=== PATIENT | female | born 1990 | race Caucasian/White ===

== ENCOUNTER 2018-08-09 22:27 | Inpatient (IN) ==
[2018-08-09] MEDS ORDERED: Naloxone 0.4 MG/ML INJ IVP PRN (23:10)
[2018-08-09] MEDS ORDERED: Ondansetron 4 MG/2 ML VIAL IVP PRN (23:10)
[2018-08-09] MEDS ORDERED: Famotidine 20 MG/2 ML VIAL IVP PRN (23:10)
[2018-08-09] MEDS ORDERED: *HR* Nalbuphine 10 MG/ML AMPUL IVP PRN (23:10)
[2018-08-09] MEDS ORDERED: Metoclopramide 10 MG/2 ML VIAL IVP PRN (23:10)
[2018-08-09] MEDS ORDERED: Ringers Solution, Lactated 1,000 ML IVC SCH (23:15)
[2018-08-09] MEDS ORDERED: Oxytocin 20 units/ LR 1000 mL 20 UNIT/1,000 ML BAG IVC SCH (23:15)
--- NOTE | 2018-08-10 00:03 | OB/GYN History & Physical ---
Date of Encounter: 08/10/18 Time of Encounter: 00:00 Assessment and Plan (1) 39 weeks gestation of Current visit: Yes Status: Acute Patient admitted for IOL Dr. Mckeon aware of patient's admission Pitocin per protocol Epidural when patient desires History of Present Illness Chief complaint: Scheduled IOL at 39w0d HPI: Ms. Wilson is a 27 year old female @ 39w0d presents to labor and delivery for scheduled IOL. IOL was previously discussed with Dr. Mckeon and he agreed to the POC. Patient reports good movement and irregular contractions. Patient denies any complications with and receives care with Midwives. Blood type: O+ Rubella: Immune Hep B: Nonreactive GBS: Negative Past Med Surg Social Fam HX - Past Medical History Source: patient Medical history: no medical history Psychiatric history: no psych history - Past Surgical History Additional surgical history: eye surgery - Social History Smoking Status: Current every day smoker Smokeless Tobacco Status: No Alcohol use: none Drug use: none Obstetrical History - Pregnancies : 2 Para: 1 Term: 1 : 0 Ab's: 0 Livin Medications and Allergies Flintstones 1 tab PO DAILY 08/09/18 [History] Allergy/AdvReac Type Severity Reaction Status Date / Time No Known Allergies Allergy Verified 03/13/17 23:56 Review of System OB - Constitutional Constitutional ROS IM: no chills, no fever(s), no headache(s) - Cardiovascular Cardiovascular: no chest pain, no edema, no lightheadedness, no pedal edema, no syncope - Respiratory Respiratory: no cough, no dyspnea - Gastrointestinal Gastrointestinal: no abdominal pain, no constipation, no diarrhea, no heartburn, no nausea, no vomiting - Genitourinary Genitourinary: no abnormal vaginal bleeding, no dysuria, no flank pain, no urinary frequency, no urinary urgency, no vaginal discharge, no vaginal odor, no vaginal pruritis Exam - Constitutional Constitutional: well developed, well nourished, no acute distress, average body habitus - HEENT HEENT: Normocephaly, Mucus Membranes Moist - Neck Neck exam: full ROM, supple - Lungs Respiratory exam: CTAB - Cardiovascular Cardiovascular exam: RRR, +S1, +S2 - Abdomen Abdomen: Present: bowel sounds normal, gravid, non tender - Extremities Extremities exam: full ROM, normal capillary refill, normal inspection Deep Tendon Reflex Grade: 2+ Normal - Vagina Vagina: Present: normal moisture - Cervix Dilation: 4 Effacement: 80 Station: -1 - Uterus Uterus exam: Present: normal size, normal contour - Anus/Rectum Anus/Rectum: Present: normal perianal skin - Comments Comments: FHR 125 bpm moderate variability +15x15 accels no decels noted. Cat. 1 tracing Occasional contraction noted. Results All other labs normal. - VTE Reasons for not Prescribing Prophylaxis: Treatment not Indicated - Low risk for VTE
[2018-08-10 00:18] LABS: Basophils % 0.1 %; Eosinophils # 0.1 K/mcL (0.0-0.6); Eosinophils % 0.6 %; Hematocrit 32.7 % (35.3-44.9); Hemoglobin 10.9 g/dL (11.5-15.4); Immature Granulocytes % 1.3 % (0-4); Lymphocytes # 3.2 K/mcL (0.6-4.6); Lymphocytes % 24.7 %; Mean Corpuscular HGB Conc 33.3 g/dL (31.6-35.5); Mean Corpuscular Hemoglobin 32.1 pg (28.0-33.3); Mean Corpuscular Volume 96.2 fL (83.0-100.0); Mean Platelet Volume 9.8 fL (9.4-12.4); Monocytes # 1.1 K/mcL (0.0-1.3); Monocytes % 8.4 %; Neutrophils # 8.3 K/mcL (1.6-8.9); Platelet Count 248 K/mcL (140-400); Red Cell Distribution Width 13.6 % (11.5-14.5); Segmented Neutrophils % 64.9 %
[2018-08-10] MEDS ORDERED: Lidocaine -MPF 2% 5 ML VIAL ONE (01:45)
[2018-08-10] MEDS ORDERED: Epidural Premix (fent/bupiv) 110 ML EP ONE (01:49)
[2018-08-10] MEDS ORDERED: EPHEDrine 50 MG/ML VIAL IVP PRN (02:18)
--- NOTE | 2018-08-10 02:20 | Anesthesia Procedures ---
Addendum entered and electronically signed by Kevyn Flynn CRNA 08/10/18 06:42: Infant Delivery Date: 08/10/18 Infant Delivery Time: 06:02 Original Note: Date of Encounter: 08/10/18 Time of Encounter: 01:57 Procedures: Anesthesia - Epidural/Spinal Patient ID/Chart reviewed: Yes Patient examined: Yes OB Eval: Gestational age: term OB Eval: : 2 OB Eval: Hx Para: 1 OB Eval: Contractions: Non-stressed pattern Consent Obtained: Yes Supplemental Oxygen: None/Room Air Site Prep: Aseptic Technique, Sterile prep and drape, 0.5% Chlorhexidine/Alcohol Patient position: upright Local Anesthetic: Lidocaine 1% Amount of Local Anesthetic used: 2 Touhy Needle Gauge: 18 Touhy Needle Depth (cm): 7 Catheter Depth at Skin (cm): 11 Test Dose (1.5% Lido + Epi): Volume given (mls): 3 Test Dose Result: Negative Loading Dose: Other: 10ml from solution Loading Dose Administered: Thru Catheter Infusion Med: 0.125% Bupivacaine w/ 2 mcg/ml Fentanyl Infusion Rate (mls/hr): [address]: Tegaderm, Tape Interspace Used: L3-L4 Loss of Resistance (DEN): Yes (saline) Blood: No CSF: No Paresthesia: No Procedure: vss though out procedure, fhr via rn
--- NOTE | 2018-08-10 02:22 | Anesthesia Evaluation PreOp ---
Date of Encounter: 08/10/18 Time of Encounter: 01:57 - Past History Planned Operation: vaginal del, induction Cardiac History: Denies any Significant Hx Pulmonary History: Denies Any Significant HX TRAFFIC ATTENDANT History: Denies Any Significant HX Other Medical History: Denies Any Significant HX Anesthesia History: No Prior Anesthetic Complications, Past Anesthesia (no family hx.) Alcohol Use: none Drug use: none Medications and Allergies Flintstones 1 tab PO DAILY 08/09/18 [History] Allergy/AdvReac Type Severity Reaction Status Date / Time No Known Allergies Allergy Verified 03/13/17 23:56 Anesthesia Results - Labs 08/09/18 23:10 Anesthesia Exam - HEENT Pupil (Motor): Pupils equal Mallampati: II Teeth: Normal Oral Opening: Greater than 3 - TRAFFIC ATTENDANT LOC: Oriented TRAFFIC ATTENDANT Motor: Normal RUE, Normal LUE, Normal RLE, Normal LLE, Normal Face TRAFFIC ATTENDANT Sensory: Normal: RUE, LUE, RLE, LLE, Face - Cardiac Rhythm: Regular Murmur: None - Pulmonary Breath Sounds: bilateral Clear Respiratory Effort: Symmetrical Anesthesia Assess/Plan ASA Score: 2 Level of consciousness: Cooperative, Oriented Anesthetic Plan: General, Spinal, Epidural Monitoring Plan: Standard Monitors Recovery Plan: PACU
[2018-08-10] MEDS ORDERED: Epidural Premix (fent/bupiv) 110 ML EP SCH (02:30)
--- NOTE | 2018-08-10 03:02 | OB Labor Progress Note ---
Date of Encounter: 08/10/18 Time of Encounter: 02:59 Labor Progress Note - Subjective Subjective: Patient doing well. Patient comfortable with epidural in place. - Cervix Cervix: 4.5/80/-1 - Heart Tones Heart Tones: 155 bpm moderate variability +15x15 accels no decels noted. Cat. 1 tracing - [place]: 2-3 min apart - Interventions Interventions: SVE, AROM moderate amount of clear fluid. Patient tolerated well. - Plan Plan: Continue labor management anticipate
--- NOTE | 2018-08-10 06:30 | OB/GYN Procedure Note ---
Delivery - Delivery Date: 08/10/18 Provider: Jessica Mendez Intrapartum events: none Delivery induction: AROM, oxytocin Delivery monitor: external FHT, external uterine Anesthesia: epidural Quantitated Blood Loss: 100 - (s) Infant A Infant Delivery Date: 08/10/18 Delivery Time: 06:02 Presentation: vertex Position: ORI Route of delivery: Gender: Female Viability: Viable Pounds: 7 Ounces: 2 at 1 minute: 7 at 5 mins: 9 Shoulder Dystocia: not encountered Specimens collected: cord blood Placenta: spontaneous, uterine exploration Cord: nuchal cord (x2), 3 umbilical vessels, nuchal reduced - Repair Episiotomy: none Laceration Description: None - Complications Delivery complications: none - Disposition Mom disposition: stable in LDR [place] disposition: stable in LDR - Comments Comments: Called to LDR for delivery, upon entering the room was . Under maternal effort patient spontaneously delivered a viable female over an intact perineum. A nuchal cord x2 was easily reduced. No shoulder dystocia or meconium was encountered. Cord was clamped and cut was taken to warmer to the nursery staff. Apgars 7 at 1 min and 9 at 5 min. Placenta delivered spontaneously and intact. Uterus was explored for blood clots. Pericare provided, all counts correct. Both mother and infant stable in LDR for 2 hour recovery.
[2018-08-10] MEDS ORDERED: Prenatal Vit/FA 1 EACH TABLET PO SCH (09:20)
[2018-08-10] MEDS ORDERED: Acetaminophen 325 MG TABLET PO PRN (09:20)
[2018-08-10] MEDS ORDERED: Measles/Mumps/Rubella Vacc 0.5 ML VIAL SQ PRN (09:20)
[2018-08-10] MEDS ORDERED: Oxytocin 20 units/ LR 1000 mL 20 UNIT/1,000 ML BAG IVC SCH (09:20)
[2018-08-10] MEDS: Ibuprofen 600 MG TABLET PO PRN ×2 (10:38→19:57)
[2018-08-11 04:45] LABS: Basophils % 0.2 %; Eosinophils # 0.1 K/mcL (0.0-0.6); Hematocrit 28.8 % (35.3-44.9); Hemoglobin 9.5 g/dL (11.5-15.4); Immature Granulocytes % 0.9 % (0-4); Lymphocytes # 3.1 K/mcL (0.6-4.6); Lymphocytes % 29.8 %; Mean Corpuscular Hemoglobin 32.2 pg (28.0-33.3); Mean Corpuscular Volume 97.6 fL (83.0-100.0); Mean Platelet Volume 9.8 fL (9.4-12.4); Monocytes # 0.9 K/mcL (0.0-1.3); Monocytes % 8.1 %; Neutrophils # 6.3 K/mcL (1.6-8.9); Platelet Count 228 K/mcL (140-400); Red Blood Count 2.95 M/mcL (3.82-4.97); Red Cell Distribution Width 13.8 % (11.5-14.5)
--- NOTE | 2018-08-11 08:13 | OB/GYN Progress Note ---
Date of Encounter: 08/11/18 Time of Encounter: 08:11 - Assessment and Plan (1) Status post vaginal delivery Current Visit: Yes Status: Acute (2) Family planning advice Current Visit: Yes Status: Acute Patient will be scheduled for a bilateral partial salpingectomy. Subjective - Subjective Interval history: Patient's doing well this morning minimal pain minimal bleeding still desires tubal ligation. The risks and benefits of the tubal ligation was expanded to patient with failure rate of 5-8 per thousand with increased risk of ectopic if was to occur. Did advise the patient if possible we will go ahead and remove the entire fallopian tube including the fimbria due to the new recommendations. Patient states she is 100% sure she does not want children in the future. Patient reports: appetite normal, voiding normally, pain well controlled, ambulating normally : doing well Objective - Latest Vital Signs Latest vital signs: Vital Signs Temp Pulse Resp BP Pulse Ox 08/11/18 04:00 98.2 F 78 16 117/87 99 08/10/18 19:35 97.6 F 79 16 116/86 98 08/10/18 16:05 97.7 F 77 16 113/80 99 08/10/18 11:10 98.1 F 86 16 108/68 98 08/10/18 10:10 98.5 F 89 16 111/71 98 08/10/18 09:05 98.0 F 86 16 116/71 98 Intake and Output 08/10/18 08/11/18 08/11/18 23:59 07:59 15:59 Output Total 450 / 450 650 / 650 Balance -450 / -450 -650 / -650 Output: Urine 450 / 450 650 / 650 Other: Weight 99.7 kg Patient Weight 08/11/18 23:59 Weight 99.7 kg - Exam Lungs: bilateral: normal Chest: Normal S1, Normal S2 Extremities: Present: normal Abdomen: Present: normal appearance, soft Uterus: Present: normal, firm Uterus Position: 1 Finger Below Umbilicus - Labs Labs: Laboratory Results - last 24 hr 08/11/18 04:16 WBC 10.6 RBC 2.95 L Hgb 9.5 L Hct 28.8 L MCV 97.6 MCH 32.2 MCHC 33.0 RDW 13.8 Plt Count 228 MPV 9.8 Immature Gran % 0.9 Seg Neutrophils % 60.0 Lymphocytes % 29.8 Monocytes % 8.1 Eosinophils % 1.0 Basophils % 0.2 Neutrophils # 6.3 Lymphocytes # 3.1 Monocytes # 0.9 Eosinophils # 0.1 Basophils # 0.0
--- NOTE | 2018-08-11 10:51 | Anesthesia Evaluation PreOp ---
Date of Encounter: 08/11/18 Time of Encounter: 10:42 - Past History Planned Operation: BPS Cardiac History: Denies any Significant Hx Pulmonary History: Denies Any Significant HX CRISIS INTERVENTION SPECIALIST History: Denies Any Significant HX Other Medical History: Denies Any Significant HX Anesthesia History: No Prior Anesthetic Complications, Past Anesthesia (no family hx, lap rosario in past.) Alcohol Use: none Drug use: none Medications and Allergies Flintstones 1 tab PO DAILY 08/09/18 [History] Breast Pump [BREAST PUMP] 1 each .ROUTE AD #1 each 08/11/18 [Rx] Allergy/AdvReac Type Severity Reaction Status Date / Time No Known Allergies Allergy Verified 03/13/17 23:56 Anesthesia Results - Labs 08/11/18 04:16 Anesthesia Exam - HEENT Pupil (Motor): Pupils equal Mallampati: II Teeth: Normal Oral Opening: Greater than 3 - CRISIS INTERVENTION SPECIALIST LOC: Oriented CRISIS INTERVENTION SPECIALIST Motor: Normal RUE, Normal LUE, Normal RLE, Normal LLE, Normal Face CRISIS INTERVENTION SPECIALIST Sensory: Normal: RUE, LUE, RLE, LLE, Face - Cardiac Rhythm: Regular Murmur: None - Pulmonary Breath Sounds: bilateral Clear Respiratory Effort: Symmetrical Anesthesia Assess/Plan ASA Score: 2 Level of consciousness: Cooperative, Oriented Anesthetic Plan: General (patient request.) Reason for No Neuroaxial/Regional Block: Patient refusal Monitoring Plan: Standard Monitors Recovery Plan: PACU
[2018-08-11] MEDS ORDERED: *HR* Promethazine 25 MG/ML VIAL IVP PRN ×2 (10:55→14:36)
[2018-08-11] MEDS ORDERED: *HR* Labetalol 20 MG/4 ML SYRINGE IVP PRN (10:55)
[2018-08-11] MEDS ORDERED: *HR* HYDROmorphone (PF) 1 MG/ML SYRINGE IVP PRN (10:55)
[2018-08-11] MEDS ORDERED: Scopolamine Patch 1.5 MG PATCH.TD72 TD ONE (10:57)
[2018-08-11] MEDS ORDERED: Lidocaine -MPF 2% 5 ML VIAL ONE (11:07)
[2018-08-11] MEDS ORDERED: Dexamethasone 4 MG/ML VIAL ONE (11:55)
[2018-08-11] MEDS ORDERED: *HR* FentaNYL (PF) 100 MCG/2 ML VIAL ONE ×2 (11:55→13:03)
[2018-08-11] MEDS ORDERED: Ondansetron 4 MG/2 ML VIAL ONE (11:55)
[2018-08-11] MEDS ORDERED: *HR* Succinylcholine 200 MG/10 ML VIAL IVP ONE (11:55)
[2018-08-11] MEDS ORDERED: *HR* Propofol 200 MG/20 ML VIAL IVP ONE (11:56)
[2018-08-11] MEDS ORDERED: Ringers Solution, Lactated 1,000 ML ONE (12:00)
[2018-08-11] MEDS ORDERED: EPHEDrine 50 MG/ML VIAL ONE (12:32)
--- NOTE | 2018-08-11 13:24 | Operative Note ---
Date of procedure: 08/11/18 Pre-op diagnosis: Status post vaginal delivery, desires sterilization Post-op diagnosis: same Procedure: Bilateral partial salpingectomy Complications: None Anesthesia: GETA Surgeon: Dallin Mckeon Was there an orthopedic physician assistant present: No Estimated blood loss (cc): 20 Specimen: Portions of the right and left fallopian tube Condition: stable Disposition: PACU Procedure in Detail: The patient is a 27-year-old status post vaginal delivery and desired bilateral partial salpingectomy. Patient states she does not want anymore children and wanted a permanent form of sterilization we did discuss a tubal ligation and the risks and benefits of this along with failure rate of 5-8 per thousand with increased risk of ectopic if was to occur. Did inform the patient that the new recommendation is to remove the entire tube including the fimbria decreased risk for ovarian cancer. Patient wanted to proceed on with that type of surgery if possible. Procedure: Patient was taken to the operating room where general anesthesia was found be adequate. She was placed in the dorsal supine position prepped and draped in usual fashion. Timeout was obtained. A small infraumbilical incision was made with a scalpel and carried down to the underlying tissue until the fascia was identified. Fascia was nicked in midline extended laterally with the Loya scissors. The parietal peritoneum was then identified and grasped and entered sharply. 2 [employer] retractors were placed into the incision the left fallopian tube was identified grasped for that through the incision followed at the fimbriated end. Using an 0 plain suture the ampullary region including the fimbria was then suture ligated 2 and that portion of the tube was excised off. Good hemostasis was noted ovary was visualized noted to be normal. Tube was returned to the abdominal contents were then turned to the opposite side. In a similar fashion the right fallopian tube was grasp order through the incision then the distal portion of the fallopian tube including the fimbria was then suture ligated with oh plain 2 then the knuckle was excised. Good hemostasis was noted on this side and ovary was visualized being normal. This was returned to the abdomen the fascia was then closed using an 0 Vicryl in a running stitch and the skin was closed using a 4-0 Vicryl in a subcuticular manner. All needles lap sponge counts were correct 3 she did receive preoperative antibodies. She was taken to recovery room and she will be sent back to her room.
[2018-08-11] MEDS ORDERED: Acetaminophen IV 1,000 MG/100 ML INFUS..BTL IVPB ONE (13:28)
[2018-08-11] MEDS ORDERED: Acetaminophen 325 MG TABLET PO PRN (14:36)
[2018-08-11] MEDS ORDERED: *HR* HYDROcodone/Acet 5/325 mg TABLET PO PRN (14:36)
[2018-08-11] MEDS ORDERED: Ibuprofen 600 MG TABLET PO PRN (14:36)
[2018-08-11] MEDS ORDERED: Measles/Mumps/Rubella Vacc 0.5 ML VIAL SQ PRN (14:36)
[2018-08-11] MEDS ORDERED: *HR* Ropivacaine/PF 0.5% 20 ML VIAL ONE (15:17)
[2018-08-11 17:05] VITALS: BP 126/85
--- NOTE | 2018-08-11 17:25 | Discharge Summary ---
Date of Encounter: 08/11/18 Time of Encounter: 17:22 - Discharge Diagnosis (1) Breast feeding status of mother Priority: Secondary Status: Acute Comments: support prn. Breast pump prescription given. (2) Status post vaginal delivery Priority: Primary Status: Acute Comments: Meeting milestones for discharge. Patient comfortable and without complaint post tubal ligation. Spoke with Dr. Mckeon and he agrees that patient can be discharged home. (3) anemia Priority: Secondary Status: Acute Comments: Patient asymptomatic, VSS. Home with [facility]. Follow up as scheduled in 4 weeks. - Discharge Medications Prescriptions: Ibuprofen [Motrin] 600 mg PO Q6HR PRN #60 tablet PRN Reason: Cramping Breast Pump [BREAST PUMP] 1 each .ROUTE AD #1 each Ferrous Sulfate 325 mg PO DAILY #30 tablet Home Medications: Flintstones 1 tab PO DAILY 08/09/18 [History] Acetaminophen [Tylenol] 650 mg PO Q6HR PRN tablet 08/11/18 [Rx] Breast Pump [BREAST PUMP] 1 each .ROUTE AD #1 each 08/11/18 [Rx] Docusate [Colace] 100 mg PO BID capsule 08/11/18 [Rx] Ferrous Sulfate 325 mg PO DAILY #30 tablet 08/11/18 [Rx] Ibuprofen [Motrin] 600 mg PO Q6HR PRN #60 tablet 08/11/18 [Rx] Allergies/Adverse Reactions: Allergy/AdvReac Type Severity Reaction Status Date / Time No Known Allergies Allergy Verified 03/13/17 23:56 Data Procedures and tests throughout hospitalization: Laboratory Tests 08/09/18 08/11/18 23:10 04:16 WBC 12.8 H 10.6 RBC 3.40 L 2.95 L Hgb 10.9 L 9.5 L Hct 32.7 L 28.8 L MCV 96.2 97.6 MCH 32.1 32.2 MCHC 33.3 33.0 RDW 13.6 13.8 Plt Count 248 228 MPV 9.8 9.8 Immature Gran % 1.3 0.9 Seg Neutrophils % 64.9 60.0 Lymphocytes % 24.7 29.8 Monocytes % 8.4 8.1 Eosinophils % 0.6 1.0 Basophils % 0.1 0.2 Neutrophils # 8.3 6.3 Lymphocytes # 3.2 3.1 Monocytes # 1.1 0.9 Eosinophils # 0.1 0.1 Basophils # 0.0 0.0 Labs on day of discharge: Labs from last 24 hours 08/11/18 04:16 WBC 10.6 RBC 2.95 L Hgb 9.5 L Hct 28.8 L MCV 97.6 MCH 32.2 MCHC 33.0 RDW 13.8 Plt Count 228 MPV 9.8 Immature Gran % 0.9 Seg Neutrophils % 60.0 Lymphocytes % 29.8 Monocytes % 8.1 Eosinophils % 1.0 Basophils % 0.2 Neutrophils # 6.3 Lymphocytes # 3.1 Monocytes # 0.9 Eosinophils # 0.1 Basophils # 0.0 Date of admission: 08/09/18 22:27 Primary care physician: PCP NONE Consults: 08/10/18 09:20 Consult to Selling Specialist [CONS] Routine Comment: Vaginal delivery, consult needed Discharging clinician: Jaqueline Perez Anticipated date of discharge: 08/11/18 - Patient Status Disposition: Home, Self-Care Condition: Good Functional capacity at discharge: independent ambulation Overall status at discharge: patient is progressing back to baseline - Discharge Instructions Follow Up With: NONE,PCP [Primary Care Provider] - Jessica Mendez CNM [Non-Partnered Physician] - - Diet and Activity Activity: resume usual activities as tolerated Diet: regular diet Hospital Course Delivery: Episiotomy: none Other procedures: tubal ligation complications: none Discharge diagnosis: IUP at term delivered [place] baby: female Hospital course: Meeting day 1 milestones. Feeling well after tubal ligation. After speaking with Dr. Mckeon, he agrees with plan of care to discharge patient home this evening. Time Attestation: Total time spent providing and/or coordinating discharge services: Time Spent: Less than 30 minutes Exam - Constitutional Vitals: Temp Pulse Resp BP Pulse Ox 98.3 F 90 16 126/85 97 08/11/18 17:04 08/11/18 17:04 08/11/18 17:04 08/11/18 17:04 08/11/18 17:04 General appearance IM: A&O X 3, pleasant, no acute distress, answers questions appropriately - Respiratory Respiratory exam: Present: CTAB - Cardiovascular Cardiovascular exam IM: Present: RRR, +S1, +S2 - GI/Abdominal GI/Abdominal exam IM: normal bowel sounds Incision: dressed (Bandaid on incision) - Rectal Rectal exam: deferred - Neurological Exam Neurological exam: alert, oriented X3
--- NOTE | 2018-08-11 21:15 | Anesthesia Evaluation Post Op ---
Date of Encounter: 08/11/18 Time of Encounter: 21:14 - Vital Signs Vital Signs: vss patient was seen in PACU - Lungs Lungs: Clear Ascult./Percussion - Airway Airway: Non-obstructed - Mental Status Mental Status: Alert & Oriented, Answers Appropriately - Pain Pain Scale used: Magaly (Faces) - Nausea Vomiting Nausea Vomiting: Not Present - Discharge PostOp Status: Transfer Patient to floor
[2018-08-12] MEDS ORDERED: Prenatal Vit/FA 1 EACH TABLET PO SCH (09:00)
== END 2018-08-11 18:48 | disposition home or self-care (01) | DRG 541 ==
LOC: 1NENULAB 22:27 → 1NENUOBS 08-10 09:18
PROVIDERS: ADMIT Advanced Practice Midwife; ATTEND Advanced Practice Midwife